=== PATIENT | male | born 1970 | race Caucasian/White ===

== ENCOUNTER 2017-01-23 18:48 | Observation (INO) | payer BC ==
[2017-01-23] MEDS ORDERED: Ketorolac Tromethamine 30 MG/ML VIAL ONE (19:27)
[2017-01-23] MEDS ORDERED: Methocarbamol 500 MG TAB ONE (19:27)
[2017-01-23 19:34] LABS: #Basophils 0.2 thou/uL (0.0-0.2); #Eosinphils 0.2 thou/uL (0.0-0.7); #Lymphocytes 1.6 thou/uL (1.20-3.40); #Monocytes 0.7 thou/uL (0.11-0.59); #Neutrophils 4.8 thou/uL (1.40-6.50); %Basophils 2.2 % (0.0-1.0); %Eosinophils 2.4 % (0.0-10.0); %Monocytes 8.7 % (0.0-10.0); Mean Platelet Volume 6.8 fL (7.4-10.4); Red Blood Cell (RBC) Count 5.53 mill/uL (4.70-6.10); White Blood Cell (WBC) Count 7.5 thou/uL (4.8-10.8)
[2017-01-23 19:43] LABS: ALT (SGPT) 120 U/L (8-55); AST (SGOT) 56 U/L (5-34); Alkaline Phosphatase 109 U/L (40-150); Anion Gap 15 mmol/L (10-20); BUN (Urea Nitrogen) 13 mg/dL (8.9-20.6); Bilirubin, Total 0.7 mg/dL (0.2-1.2); Calc. Creatinine Clearance 0 mL/min (70-130); Calcium 9.6 mg/dL (7.8-10.44); Carbon Dioxide 25 mmol/L (22-29); Chloride 105 mmol/L (98-107); Estimated GFR-MDRD Greater than 90; Globulin 3.2 g/dL (2.4-3.5); Protein, Total 7.4 g/dL (6.0-8.3)
[2017-01-23 19:50] LABS: Bilirubin Negative (Negative); Blood, Urine Negative (Negative); Glucose, Urine (Dipstick) Negative (Negative); Ketone, Urine Negative (Negative); Nitrite Negative (Negative); Protein, Urine (Dipstick) Negative (Neg-Trace); Urobilinogen 0.2 mg/dL (0.2-1.0)
--- NOTE | 2017-01-23 20:30 | RAD ---
TWO VIEW CHEST: History: Upper back pain. Comparison: 10-13-10 FINDINGS: The lungs are clear. Heart and mediastinum appear unremarkable. Visualized osseous structures unremar kable. There is stranding in the left lung base adjacent the hemidiaphragm which is a stable finding from th e prior study indicating some chronic parenchymal change. IMPRESSION: No evidence of acute process. POS: [facility]
--- NOTE | 2017-01-23 21:07 | ULT ---
GALLBLADDER ULTRASOUND: History: Abdominal pain. FINDINGS: Gallbladder is poorly imaged due to overlying bowel gas. The gallbladder appears mildly contracted. T his suggests that the patient is not fasting. No definite gallstones identified. The common duct appe ars upper normal caliber measured at 7 mm. The liver is echogenic consistent with fatty infiltration. The pancreas is obscured. Images of the ri ght kidney reveal an echogenic focus in the mid to lower pole collecting structure suggesting a calcu dustin, which measures in the 7-8 mm range. There is no hydronephrosis. IMPRESSION: 1. Gallbladder is suboptimally evaluated. Findings suggest a non-fasting state. Recommend a repeat ex am after over-night fasting. 2. There is evidence of fatty infiltration of the liver. 3. Evidence of a renal calculus in the right kidney. POS: [facility]
[2017-01-23] MEDS ORDERED: Morphine 4 MG/ML Carpuject ONE (22:04)
[2017-01-23] MEDS ORDERED: Ondansetron HCl/PF 4 MG/2 ML Vial IVP PRN (23:04)
[2017-01-23] MEDS ORDERED: Ondansetron ODT 4 MG TAB SL PRN (23:04)
[2017-01-23] MEDS ORDERED: MORPHINE 10 MG/ML SYRINGE SLOW IVP PRN (23:06)
[2017-01-24] MEDS: Dextrose 5 %-0.45 % NaCl 1,000 ML IV SCH ×2 (06:44→09:06)
--- NOTE | 2017-01-24 07:10 | HP ---
CHIEF COMPLAINT: Right upper back pain. HISTORY OF PRESENT ILLNESS: This is a 46-year-old male who has a history of hyperlipidemia, hyperten tiana, and obesity who presents with a several week history of mild pain in his right lateral upper ba ck that is sharp, made worse by lying on that side. The pain comes and goes, not preceded by any sig nificant increase in physical activity in terms of lifting, twisting, bending or stooping, however, gali beavers walked more this weekend and says that it hurt more after that. There is no association with food. If not associated with nausea, vomiting, GERD. No diarrhea or constipation, no dysuria, no blood i n his urine or blood in his stool. He has never been told he had gallstones in the past. He was see n in the emergency department where an ultrasound was inconclusive secondary to bowel gas pattern. Gali beavers does have a nonobstructing appearing kidney stone. PAST MEDICAL HISTORY: Includes hypertension, hyperlipidemia. PAST SURGICAL HISTORY: Appendectomy. MEDICINES: Triamterene, hydrochlorothiazide, Toprol, melatonin and testosterone gel, simvastatin, om eprazole, loratadine, flaxseed, B12, D3, aspirin, Xanax. ALLERGIES: No known drug allergies. SOCIAL HISTORY: No smoking, alcohol or other drugs. REVIEW OF SYSTEMS: Ten system review of systems otherwise negative unless described above. PHYSICAL EXAMINATION: VITAL SIGNS: Blood pressure 170/92, pulse 80, respirations 18. He is afebrile. HEENT: Sclerae are anicteric. Oropharynx clear. NECK: No lymphadenopathy. CHEST: Clear. HEART: Regular rate and rhythm. ABDOMEN: Soft and nontender, nondistended. He does have some mild point tenderness in the right upp er lateral flank, not CVA. LABORATORY AND X-RAY FINDINGS: White blood cell count 7, hemoglobin 16, platelets are 289, normal di fferential. D-dimer normal. Sodium 141, potassium 3.6, creatinine 0.90, bilirubin 0.7. AST, ALT ar e 56 and 120. Urine is negative. No blood. Ultrasound is limited, but there are no obvious gallsto judith. Chest x-ray negative, no hydronephrosis. ASSESSMENT: Right upper flank pain, not consistent with a kidney stone, could be gallstone related, although ultrasound limited, could be musculoskeletal. PLAN: We will repeat his ultrasound this morning now that he has been fasting. If ultrasound negati ve then CT of the abdomen and pelvis. If that is negative then this likely is musculoskeletal.
[2017-01-24] MEDS ORDERED: Ondansetron ODT 4 MG TAB PO PRN (07:21)
[2017-01-24] MEDS ORDERED: Morphine 4 MG/ML Carpuject IVP PRN (07:21)
[2017-01-24] MEDS ORDERED: Promethazine HCl 25 MG/ML VIAL IM PRN (07:21)
[2017-01-24] MEDS ORDERED: hydrALAZINE 20 MG/ML VIAL SLOW IVP PRN (07:21)
[2017-01-24] MEDS ORDERED: Dextrose 5% in Water 1,000 ML IV PRN (07:21)
[2017-01-24] MEDS ORDERED: Dextrose 50% Abboject 50 ML SYRINGE SLOW IVP PRN (07:21)
[2017-01-24] MEDS ORDERED: Sodium Chloride 0.9% 1,000 ML IV SCH (07:21)
[2017-01-24] MEDS ORDERED: Ondansetron HCl/PF 4 MG/2 ML Vial IVP PRN (07:21)
[2017-01-24] MEDS ORDERED: Morphine PF 1 MG/ML SYR IVP PRN (07:39)
[2017-01-24] MEDS ORDERED: Morphine 4 MG/ML VIAL SLOW IVP PRN (07:40)
[2017-01-24] MEDS ORDERED: FLU VACC QS2017-18 36 mo. & older 0.5 ML SYRINGE IM ONE (09:00)
[2017-01-24] MEDS: ALPRAZolam 0.5 MG TAB PO SCH ×2 (09:09→20:11)
[2017-01-24] MEDS: Famotidine/PF 20 mg/2ml Vial SLOW IVP SCH ×2 (09:09→20:10)
[2017-01-24] MEDS: D5 1/2 NS w/20 mEq KCL 1,000 ML IV SCH ×2 (09:09→18:30)
[2017-01-24] MEDS: Triamterene/Hydrochlorothiazide 37.5 mg/25 mg Tablet PO SCH (09:09)
--- NOTE | 2017-01-24 09:45 | ULT ---
RIGHT UPPER QUADRANT ULTRASOUND: DATE: 01/24/17. FINDINGS: Multiple longitudinal and transverse images of the right upper quadrant of the abdomen were obtained using a multihertz curvilinear transducer. Real-time color flow images demonstrate diffuse fatty inf iltration of the liver. The gallbladder is unremarkable. No evidence of gallstones seen. The commo n bile duct is of normal size measuring 4.2 mm. No evidence of pericholecystic fluid seen. Visualized portions of the pancreas are unremarkable. The right kidney is unremarkable measuring 12. 9 cm from [id number]. No evidence of ascites seen. Normal hepatopetal flow is seen in the portal system. IMPRESSION: Normal right upper quadrant ultrasound. No significant evidence of abnormality seen. Diffuse fatty infiltration of the liver is seen. POS: [facility]
[2017-01-24] MEDS ORDERED: Citalopram 20 MG TAB PO SCH (11:30)
[2017-01-24] MEDS ORDERED: ISOVUE-370 76%-LOCM 1 ML ONE (13:56)
--- NOTE | 2017-01-24 16:06 | CT ---
CT ABDOMEN AND PELVIS WITH IV CONTRAST: DATE: 01/24/17. HISTORY: Right upper quadrant abdominal pain and right upper flank pain that has persisted for 1 month. The p atient has been progressively getting worse. COMPARISON: None available. FINDINGS: There is incomplete visualization of a pleural-based nodular density measuring at least 2.1 cm based on the limited visualized inferior aspect of this structure. There is also a noncalcified pulmonary nodule seen at the right lung base posteriorly measuring approximately 11 mm. Linear densities are s een at each lung base which may be related to atelectasis or scarring. The liver demonstrates diminished attenuation suggesting diffuse fatty infiltration. The left kidney is smaller in size compared to the right with scarring and a greater degree of atroph y involving the inferior pole left kidney. Kidneys otherwise enhance symmetrically. The spleen, pancreas, bilateral adrenal glands, opacified bowel, and decompressed urinary bladder dem onstrate a normal CT appearance. The appendix is not visualized, but there are no secondary CT findings to suggest appendicitis. No free fluid, fluid collection, or lymphadenopathy is seen in the abdomen or pelvis. Degenerative changes are seen in the lumbar spine. IMPRESSION: 1. Pulmonary nodule at the right lung base with a larger pleural-based nodular density right lung ba se which is incompletely imaged or evaluated on this exam. CT thorax is recommended for further eval uation. 2. Fatty infiltration of the liver. 3. Atrophy of the left kidney. The left kidney otherwise enhances symmetrically compared to the rig ht kidney. CODE T POS: [facility]
[2017-01-24] MEDS ORDERED: HYDROcodone/Acetaminophen 10/325 mg Tablet PO PRN ×2 (17:14)
--- NOTE | 2017-01-24 17:35 | PRG ---
DATE OF SERVICE: 01/24/2017 SUBJECTIVE: Mr. Fields is seen on late rounds today. He is still having similar pain, although he is hungry. I started him on a regular diet. His ultrasound showed no gallstones. His CTA of his ab domen and pelvis showed no obvious intra-abdominal pathology. He does have a pleural based nodule in the area of his symptoms that unfortunately is incompletely characterized on the CT of the abdomen a nd pelvis. They recommended a CT of the chest for further delineation. I have discussed with Dr. Annette Sánchez, who will see him in the morning and likely transitioned this workup to an outpatient fo r followup CAT scan later.
[2017-01-24] MEDS ORDERED: Enoxaparin Sodium 40 MG/0.4 ML SYRINGE SC SCH (21:00)
[2017-01-24] MEDS ORDERED: Atorvastatin Calcium 20 MG TAB PO SCH (21:30)
[2017-01-25] MEDS: D5 1/2 NS w/20 mEq KCL 1,000 ML IV SCH ×2 (02:14→09:10)
[2017-01-25 07:49] VITALS: TEMP 97.9
[2017-01-25 08:55] VITALS: BP 139/89
[2017-01-25] MEDS ORDERED: Citalopram 20 MG TAB PO SCH (09:00)
[2017-01-25] MEDS: ALPRAZolam 0.5 MG TAB PO SCH (09:11)
[2017-01-25] MEDS: Famotidine/PF 20 mg/2ml Vial SLOW IVP SCH (09:12)
[2017-01-25] MEDS: Triamterene/Hydrochlorothiazide 37.5 mg/25 mg Tablet PO SCH (09:12)
--- NOTE | 2017-01-25 12:51 | DIS ---
The patient is doing well. Pain is more controlled. No shortness of breath. PHYSICAL EXAMINATION: VITAL SIGNS: Afebrile. Vital signs are stable. ABDOMEN: Abdominal exam is benign. ASSESSMENT: Pleural nodules seen on CT of the abdomen and pelvis. PLAN: Dr. Sánchez to see this morning. The patient will be discharged after that. I wrote a prescr iption for [facility]. He will follow up with me only on an as needed basis.
[2017-01-25] MEDS ORDERED: Atorvastatin Calcium 20 MG TAB PO SCH (21:00)
--- NOTE | 2017-01-25 23:21 | CON ---
DATE OF CONSULTATION: 01/25/2017 SERVICE: Pulmonary Medicine. REASON FOR CONSULTATION: Pulmonary nodule. HISTORY OF PRESENT ILLNESS: Patient is a 46-year-old [place] male with past medical history significa nt for a right flank/right upper quadrant/inferior right chest wall discomfort. This has been growin g slowly over a period of roughly 5 weeks. It is worse in the morning. It is associated with moveme nt of the chest wall while moving from side to side. He is very careful to note, however, that it do es not get worse whenever he takes a deep breath, coughs, or sneezes. Either way, this discomfort reyes s grown to the point that he presented to the emergency department. Because of some mild LFT elevati on, he was presumed to have cholecystitis, but he had a negative Euceda's sign and he did not have mu ch tenderness in the right upper quadrant. Ultimately, multiple imaging studies were unremarkable. There were an incidentally discovered pulmonary nodule and possible pleural based nodule that were fo und in the lower regions of the lung. He currently denies any weight loss, hemoptysis, fevers, chill s, nausea, or vomiting. He is a lifelong nonsmoker. Otherwise, he is in his usual state of health. Intervention that we did well, we were here in the hospital have improved his discomfort at this tiffani e. PAST MEDICAL HISTORY: 1. Hypertension. 2. Dyslipidemia. 3. Morbid obesity. 4. Fatty liver. PAST SURGICAL HISTORY: Appendectomy. ALLERGIES: No known drug allergies. MEDICATIONS: Home medications and inpatient medications have been reviewed. No updates were made at this time. SOCIAL HISTORY: Negative for alcohol, tobacco, or illicit drug use. He is a lifelong nonsmoker and has no exposures to chemicals, dust, or asbestos. He has no history of tuberculosis. FAMILY HISTORY: Noncontributory. REVIEW OF SYSTEMS: General, head, ears, eyes, nose, throat, cardiovascular, respiratory, GI, , mus culoskeletal, neurologic, and skin is negative except as mentioned in the HPI. PHYSICAL EXAMINATION: VITAL SIGNS: Afebrile, pulse 58, blood pressure 139/89, respirations 16, saturation 95% on room air. GENERAL: The patient is awake and alert. He is in no apparent distress at this time. HEENT: Normocephalic, atraumatic. Sclerae are white. Conjunctivae pink. Oral and nasal mucosa is moist without lesions. NECK: There is no cervical lymphadenopathy present. LUNGS: Excellent air entry. There is no prolonged expiratory phase, wheezing, rhonchi, or crackles. Careful auscultation over this area of tenderness did not demonstrate any rubs. HEART: Normal rate, regular. ABDOMEN: Soft, nontender, nondistended. Bowel sounds are positive. MUSCULOSKELETAL: No cyanosis or clubbing. There is 1+ pitting in the bilateral lower extremities. GENITOURINARY: No Roberts. NEUROLOGIC: Grossly nonfocal. LABORATORY DATA: WBC 7.5, hemoglobin 16.6, platelets 289,000. D-dimer 0.3. Basic metabolic profile , liver function studies were unremarkable except for marginally elevated AST and ALT. Urinalysis is unremarkable. IMAGIN. Chest x-ray demonstrates no acute cardiopulmonary abnormality. This is an underpenetrated film. 2. Abdominal ultrasound was performed x2. The second had better windows. On this study, there was no obvious acute intraabdominal process. The common bile duct had a normal caliber. 3. CT of the abdomen and pelvis demonstrated a fatty liver, but outside of this, there is no intra-a bdominal pathology. Incidentally discovered pulmonary nodule, and pleural based lesion was also iden tified. There is no prior for comparison there. ASSESSMENT: 1. Pulmonary nodule. 2. Possible pleural based ground-glass nodule. 3. Chest wall discomfort, reproducible with palpation. PLAN: Since the patient discomfort has improved, I am going to treat this basically like a pulmonary nodule. He can be given a brief course of steroids to see if this helps with the inflammation, but otherwise I am recommending some supportive care with warmth, ice, and nonsteroidal anti-inflammatory drugs moving forward for his discomfort to be used on a p.r.n. basis. He will return to my clinic i n roughly 3 months with a pre-clinic CT of the chest. We did discuss some alarm features and if he d evelops a cough, increasing dyspnea, hemoptysis, night sweats, or experiences significant weight redu ction, he will return to clinic before those 3 months. From my perspective, there is nothing in the lung at this time that should keep him from transitioning home. Please call with additional question s or concerns. My suspicion is that these nodules are nothing to be concerned about at this time, bu t they do require followup. The patient does understand that they are unlikely to represent malignan cy, but that is still is well within our differential.
== END 2017-01-25 11:20 | disposition home or self-care (01) ==
LOC: SCSER 18:48 → INTOOBSV 22:58 → SJJU 22:58
PROVIDERS: ADMIT Surgery; ATTEND Surgery
DX: R91.1 Solitary pulmonary nodule (principal); I10 Essential (primary) hypertension; E78.5 Hyperlipidemia, unspecified; K76.0 Fatty (change of) liver, not elsewhere classified; E66.01 Morbid (severe) obesity due to excess calories; Z68.41 Body mass index [BMI] 40.0-44.9, adult; Z90.49 Acquired absence of other specified parts of digestive tract
CPT/HCPCS: 71020; 74177; 76705; 80053; 81003; 85025; 85379; 96361; 96372; 96374; 96375; 96376; G0378; J1650; J1885; J2270; S0028

== ENCOUNTER 2017-04-11 09:42 | Outpatient (CLI) | payer BC ==
--- NOTE | 2017-04-11 11:48 | CT ---
CT CHEST WITH IV CONTRAST: Date: 04/11/17 HISTORY: Pulmonary nodule. FINDINGS: Correlation is made with the CT abdomen and pelvis of 01/24/17. No mediastinal, hilar, or axillary mass or lymphadenopathy seen. No pleural or pericardial effusions are identified. There is no evidence of aneurysmal dilatation of the thoracic aorta. There is a stable 1.0 cm peripheral nodule in the right lower lobe. Superior to this, there is mild p leural thickening. There are degenerative changes in the spine. Upper abdominal tomograms demonstrate fatty infiltration of the liver. IMPRESSION: Stable right lung nodule. Evaluation with PET scan would be helpful. POS: [facility]
[2017-04-11] MEDS ORDERED: Iopamidol 370 76% 100 ML VIAL ONE (14:26)
== END 2017-04-11 09:43 | disposition home or self-care (01) ==
LOC: CT 09:42
PROVIDERS: ATTEND Internal Medicine
DX: R91.1 Solitary pulmonary nodule (principal)
CPT/HCPCS: 71260

== ENCOUNTER 2017-12-07 11:29 | Outpatient (CLI) | payer BC ==
--- NOTE | 2017-12-07 16:33 | CT ---
CT CHEST WITHOUT CONTRAST: Date: 12/07/17 HISTORY: Pulmonary nodule. COMPARISON: 04/11/17. FINDINGS: The 1.0 cm peripheral nodule in the right lower lobe is stable. The mild pleural thickening superior to this is also stable. There are a few tiny calcified nodules consistent with old granulomatous dise ase. No new pulmonary nodules are identified. No pleural or pericardial effusions are seen. There is no evidence of aneurysmal dilatation of the th oracic aorta. There are degenerative changes in the spine. Upper abdominal tomograms demonstrate fatt y infiltration of the liver. IMPRESSION: Stable right lung nodule. Evaluation with PET scan would be helpful. POS: [facility]
== END 2017-12-07 11:30 | disposition home or self-care (01) ==
LOC: BICCT 11:29
PROVIDERS: ATTEND Internal Medicine
DX: R91.1 Solitary pulmonary nodule (principal); G47.33 Obstructive sleep apnea (adult) (pediatric)
CPT/HCPCS: 71250